=== PATIENT | female | born 1985 | race Caucasian/White ===

== ENCOUNTER 2018-01-09 16:43 | Inpatient (IN) | payer MEDICAID ==
[2018-01-09] MEDS ORDERED: MISOPROSTOL 200 MCG TAB PR ×2 (17:30→21:00)
[2018-01-09] MEDS ORDERED: METHYLERGONOVINE 0.2 MG INJ IM ×2 (17:30→21:00)
[2018-01-09] MEDS ORDERED: CARBOPROST 250 MCG INJ IM ×2 (17:30→21:00)
[2018-01-09] MEDS ORDERED: OXYTOCIN 30 UNITS/LR 500 ML IV ×3 (17:30→21:00)
[2018-01-09] MEDS ORDERED: LIDOCAINE 1% (MPF) 30 ML INJ INJ (17:30)
[2018-01-09] MEDS: AMPICILLIN 2 GM/NS (PMX) 100 ML IV ×2 (17:32)
[2018-01-09] MEDS: LACTATED RINGER'S 1,000 ML IV (17:32)
[2018-01-09 17:48] LABS: ADD MAN DIFF? NO
[2018-01-09 17:50] LABS: ABNORMAL IP MESSAGE 1; BASOPHILS % 0.2 % (0.0-2.0); EOSINOPHILS # 0.1 10^3/ul (0.0-0.5); EOSINOPHILS % 0.6 % (0.0-7.0); HEMATOCRIT 40.8 % (37.0-47.0); HEMOGLOBIN 14.1 g/dl (12.0-16.0); LYMPHOCYTES # 2.2 10^3/ul (0.8-2.9); LYMPHOCYTES % 17.1 % (15.0-51.0); MEAN CORPUSCULAR HEMOGLOBIN 31.5 pg (29.0-33.0); MEAN CORPUSCULAR HGB CONC 34.6 g/dl (32.0-37.0); MEAN CORPUSCULAR VOLUME 91.3 fl (82.0-101.0); MEAN PLATELET VOLUME 13.1 fl (7.4-10.4); MONOCYTE # 0.9 10^3/ul (0.3-0.9); MONOCYTES % 7.2 % (0.0-11.0); NEUTROPHIL # 9.6 10^3/ul (1.6-7.5); NEUTROPHILS % 74.4 % (39.0-77.0); PLATELET COUNT 173 10^3/UL (140-415); RED BLOOD COUNT 4.47 10^6/ul (4.20-5.40); RED CELL DISTRIBUTION WIDTH 12.6 % (11.5-14.5)
[2018-01-09 17:50] LABS: WHITE BLOOD COUNT 12.9 10^3/ul (4.8-10.8)
[2018-01-09 17:52] LABS: POSITIVE DIFF @See below
[2018-01-09 18:09] LABS: INR 0.83; PROTIME 11.5 Sec (11.9-14.9); PT RATIO 0.9
[2018-01-09 18:10] LABS: PARTIAL THROMBOPLASTIN TIME 27.5 Sec (25.0-35.0)
[2018-01-09] MEDS: OXYTOCIN 30 UNITS/LR 500 ML IV ×4 (18:10→22:48)
[2018-01-09 18:43] LABS: HEPATITIS B SURFACE ANTIGEN NEGATIVE (NEGATIVE)
[2018-01-09] MEDS: LACTATED RINGER'S 1,000 ML IV* (20:55)
[2018-01-09] MEDS ORDERED: SENNA/DOCUSATE NA (8.6MG/50MG) TAB PO (21:00)
[2018-01-09] MEDS ORDERED: DIPHENHYDRAMINE 25 MG CAP PO (21:00)
[2018-01-09] MEDS ORDERED: ZOLPIDEM 5 MG TAB PO (21:00)
[2018-01-09] MEDS ORDERED: ACETAMINOPHEN 325 MG TAB PO (21:00)
[2018-01-09] MEDS ORDERED: HYDROCODONE/APAP (5/325) TAB PO (21:00)
[2018-01-09] MEDS ORDERED: MAGNESIUM HYDROXIDE 30ML CUP PO (21:00)
[2018-01-09] MEDS ORDERED: AMPICILLIN 1 GM/NS (PMX) 50 ML IV ×2 (21:30)
[2018-01-09] MEDS: BENZOCAINE 20% 56 ML SPRAY TOP (21:33)
[2018-01-09] MEDS: WITCH HAZEL/GLYCERIN PAD PR (21:33)
[2018-01-09] MEDS: IBUPROFEN 800 MG TAB PO (23:11)
[2018-01-10] MEDS: LACTATED RINGER'S 1,000 ML IV* ×2 (04:55→12:55)
[2018-01-10] MEDS: IBUPROFEN 800 MG TAB PO ×3 (06:00→17:26)
[2018-01-10 09:41] LABS: ADD MAN DIFF? NO
[2018-01-10 09:44] LABS: BASOPHILS % 0.4 % (0.0-2.0); EOSINOPHILS # 0.1 10^3/ul (0.0-0.5); EOSINOPHILS % 0.7 % (0.0-7.0); HEMATOCRIT 37.9 % (37.0-47.0); HEMOGLOBIN 13.2 g/dl (12.0-16.0); LYMPHOCYTES # 1.7 10^3/ul (0.8-2.9); LYMPHOCYTES % 19.1 % (15.0-51.0); MEAN CORPUSCULAR HEMOGLOBIN 31.5 pg (29.0-33.0); MEAN CORPUSCULAR HGB CONC 34.8 g/dl (32.0-37.0); MEAN CORPUSCULAR VOLUME 90.5 fl (82.0-101.0); MEAN PLATELET VOLUME 12.6 fl (7.4-10.4); MONOCYTE # 0.6 10^3/ul (0.3-0.9); MONOCYTES % 6.2 % (0.0-11.0); NEUTROPHIL # 6.6 10^3/ul (1.6-7.5); NEUTROPHILS % 73.3 % (39.0-77.0); PLATELET COUNT 151 10^3/UL (140-415); RED BLOOD COUNT 4.19 10^6/ul (4.20-5.40); RED CELL DISTRIBUTION WIDTH 12.8 % (11.5-14.5)
[2018-01-10] MEDS: LANOLIN 7 GM TUBE TOP (10:07)
[2018-01-11] MEDS: IBUPROFEN 800 MG TAB PO ×3 (00:33→11:52)
[2018-01-11] MEDS: VARICELLA VACCINE LIVE/PF 1,350 UNIT/0.5 ML ML SC* (09:00)
[2018-01-11] MEDS: DIPHTH/TET/ACEL PERTUSS (ADULT) 0.5 ML VIAL IM* (09:00)
[2018-01-11] MEDS: MEASLES,MUMPS,RUBELLA VACCINE INJ SC* (09:00)
== END 2018-01-11 16:25 | disposition home or self-care (01) | DRG 775 ==
LOC: OBT 16:43 → L-D 16:44 → OBT 17:10 → L-D 17:10 → PP1 20:17
PROVIDERS: Obstetrics & Gynecology
PROC: 10E0XZZ Delivery of Products of Conception, External Approach (ICD-10-PCS; principal; 2018-01-09)
DX: O80 Encounter for full-term uncomplicated delivery (principal); Z3A.37 37 weeks gestation of pregnancy; Z37.0 Single live birth
CPT/HCPCS: 85025; 85610; 85730; 86592; 86900; 86901; 87340